=== PATIENT | female | born 1960 | race Caucasian/White ===

== ENCOUNTER 2022-12-18 16:13 | Emergency (ER) | payer OTHER, SELFPAY ==
--- NOTE | ~2022-12-18 | XR_ITS ---
EXAMINATION: XR chest 2V Exam Date/Time: 12/18/2022 17:13 CDT HISTORY: chest pain Comparison: None. RESULT: Lines, tubes, and devices: None. Lungs and pleura: No pneumothorax, effusion, or focal consolidation. Diffuse reticulonodular opaciti es. Cardiomediastinal silhouette: Calcified right hilar and mediastinal nodes. Other: No acute osseous or upper abdominal finding. IMPRESSION: Pulmonary opacities may represent bronchiolitis, as can be seen with atypical infection, asthma, aspi ration, and small airways disease. Reviewed, dictated and finalized at location K. IMPRESSION: Pulmonary opacities may represent bronchiolitis, as can be seen with atypical i nfection, asthma, aspiration, and small airways disease.
[2022-12-18 16:14] VITALS: BP 146/90; PULSE 110; RESP 16; TEMP 36.9; O2SAT 97
--- NOTE | 2022-12-18 16:41 | ECG_ITS ---
Measurements Intervals [employer] Rate: 107 P: 62 TN: 112 QRS: 65 QRSD: 96 T: 39 QT: 353 QTc: 473 Interpretive Statements SINUS TACHYCARDIA WITH SHORT TN INTERVAL NONSPECIFIC T-WAVE ABNORMALITY- INFERIOR LEADS BASELINE ARTIFACT- AVL ABNORMAL ECG NO PREVIOUS ECG AVAILABLE FOR COMPARISON Electronically Signed On 12-18-2022 20:57:31 CDT by Faisal Ji D.O.
[2022-12-18 17:14] LABS: Basophils Absolute Auto 0.1 K/mm3 (0.0-0.1); Basophils Percent Auto 1.2 % (0.2-1.2); Eosinophils Absolute Auto 0.2 K/mm3 (0-0.3); Eosinophils Percent Auto 2.3 % (0-4.4); Hematocrit 44.1 % (37.0-47.0); Hemoglobin 15.2 g/dL (12.0-15.0); Immature Granulocyte Absolute 0.03 K/mm3 (0.00-0.031); Immature Granulocyte Percent A 0.4 % (0-0.5); Lymphocytes Absolute Auto 3.22 K/mm3 (0.9-3.2); Lymphocytes Percent Auto 43.5 % (18.3-44.2); Mean Corpuscular HGB Conc 34.5 g/dl (32-36); Mean Corpuscular Hemoglobin 33.2 pg (26-34); Mean Corpuscular Volume 96.3 fl (80-100); Mean Platelet Volume 9.4 fl (7.4-10.4); Monocytes Absolute Auto 0.6 K/mm3 (0.1-0.6); Monocytes Percent Auto 8.5 % (2.6-8.5); Neutrophils Absolute Auto 3.3 K/mm3 (1.3-6.7); Neutrophils Percent Auto 44.1 % (45.5-73.1); Platelet Count Result 404 k/mm3 (150-375); Red Blood Count 4.58 M/mm3 (4.2-5.4); Red Cell Distribution Width 12.3 % (11.5-14.5); White Blood Count 7.4 K/mm3 (4.5-10.0)
--- NOTE | 2022-12-18 17:24 | PC.NURSE ---
SON SHAJI WAS CALLED AT [phone] AND WILL BE HERE ALLISON TO SIT WITH PT
[2022-12-18 17:29] LABS: INR 1.1; Prothrombin Time 14.2 Seconds (11.1-14.7)
[2022-12-18 17:30] LABS: Partial Thromboplastin Time 26.1 SECONDS (22.3-36.8)
--- NOTE | 2022-12-18 17:45 | ED.PSYCH ---
HPI - Psych General Chief Complaint: Psychiatric Symptoms <Domenica Mccullough MD - Last Filed: 12/19/22 23:17> Stated Complaint: SI <Domenica Mccullough MD - Last Filed: 12/19/22 23:17> Time Seen by Provider: 12/18/22 16:15 <Domenica Mccullough MD - Last Filed: 12/19/22 23:17> Source: patient and RN notes reviewed <Domenica Mccullough MD - Last Filed: 12/19/22 23:17> Mode of arrival: ambulatory <Domenica Mccullough MD - Last Filed: 12/19/22 23:17> History of Present Illness HPI Narrative: This is a 62 year old female with history of depression who presents for evaluation of depression. Patient states she moved here weeks ago from [place] to be closer to her son. She states her landlord might evict her. She states that she is unable to put her clothes away in a closet and she is living out of boxes. SHe has been asking her landlord for something and her landlord told her if she does not like living there she can leave. She has not been evicted. She states 4 days ago she was so upset that she was walking down the street . She reports having sob , chest pain and anxiety at that time. She denies exertional chest pain. Today she reports having suicidal thoughts. She has cuts to her left wrist. She states she took unknown medications 4 days ago in suicide attempt. She also reports sticking a gun in her mouth with thoughts of killing her self. She states she has not had issues with suicidal thoughts in the past. <Domenica Mccullough MD - Last Filed: 12/19/22 23:17> Related Data Home Medications: Home Medications Medication Instructions Recorded Confirmed alprazolam 0.5 mg tablet mg 12/18/22 celecoxib 200 mg capsule mg 12/18/22 fenofibrate micronized 200 mg mg 12/18/22 capsule <Domenica Mccullough MD - Last Filed: 12/19/22 23:17> Allergies/Adverse Reactions: Allergies Allergy/AdvReac Type Severity Reaction Status Date / Time No Known Allergies Allergy Verified 12/20/22 22:11 <Domenica Mccullough MD - Last Filed: 12/19/22 23:17> Review of Systems Constitutional: Constitutional: Denies weakness <Domenica Mccullough MD - Last Filed: 12/19/22 23:17> Cardiovascular: Cardiovascular: Reports chest pain, Denies syncope, Denies rapid heart rate, Denies irregular heart rhythm, Denies leg edema and Denies dyspnea <Domenica Mccullough MD - Last Filed: 12/19/22 23:17> Respiratory: Respiratory: Denies chest congestion, Denies hemoptysis, Denies excessive phlegm production and Denies dyspnea <Domenica Mccullough MD - Last Filed: 12/19/22 23:17> Gastrointestinal: Gastrointestinal: Denies abdominal pain, Denies hematochezia, Denies diarrhea and Denies vomiting <Domenica Mccullough MD - Last Filed: 12/19/22 23:17> Genitourinary: Genitourinary: Denies hematuria and Denies dysuria <Domenica Mccullough MD - Last Filed: 12/19/22 23:17> Musculoskeletal: Musculoskeletal: Denies joint swelling, Denies loss of height and Denies muscle weakness <Domenica Mccullough MD - Last Filed: 12/19/22 23:17> Neurologic: Denies syncope, Denies focal weakness and Denies weakness <Domenica Mccullough MD - Last Filed: 12/19/22 23:17> Psychiatric: Psychiatric: Reports anxiety, Reports depression and Reports suicidal ideation <Domenica Mccullough MD - Last Filed: 12/19/22 23:17> [facility] Past Medical History Medical History: Medical History (Updated 12/21/22 @ 00:00 by Shaylee Cheng) Depression Hypertension <Domenica Mccullough MD - Last Filed: 12/19/22 23:17> Surgical History Surgical History: Surgical History (Updated 12/18/22 @ 17:51 by Domenica Mccullough MD) H/O: hysterectomy <Domenica Mccullough MD - Last Filed: 12/19/22 23:17> Social History Social History: Social History Substance use type: does not use <Domenica Mccullough MD - Last Filed: 12/19/22 23:17> Exam Const: General: no acute distress and alert <Domenica Mccullough MD - Last Filed: 12/19/22 23:17> Nutritional Appe
[2022-12-18 17:59] LABS: Alanine Aminotransferase 66 U/L (6-35); Albumin Level 5.2 g/dL (3.5-5.1); Alkaline Phosphatase 91 U/L (38-126); Anion Gap 15 mmol/L (8-16); Aspartate Amino Transferase 67 U/L (14-36); Bilirubin,Total 0.5 mg/dL (0.2-1.3); Blood Urea Nitrogen 9 mg/dL (7-17); Calcium 9.4 mg/dL (8.4-10.2); Carbon Dioxide 25 mmol/L (22-30); Chloride 108 mmol/L (98-107); Estimated CRCL calculation 59 ml/min; Estimated Glomerular Filt Rate > 60; Glucose 121 mg/dL (65-110); Magnesium 2.1 mg/dL (1.6-2.3); Potassium 3.3 mmol/L (3.4-5.0); Sodium 148 mmol/L (137-145)
[2022-12-18 18:10] LABS: Troponin I < 0.012 ng/mL (0.000-0.034)
[2022-12-18 18:17] LABS: Acetaminophen < 10 ug/mL (10-30); Ethanol 161 mg/dL (<10); Salicylate < 1.0 mg/dL (2-20)
[2022-12-18] MEDS: POTASSIUM CHLORIDE 20 MEQ TABLET 40 MEQ PO (18:33)
[2022-12-18 19:05] LABS: SARS-CoV-2 RNA PCR Negative (Negative)
--- NOTE | 2022-12-18 19:28 | PC.NURSE ---
Report received from GLEN Gramajo. Assumed care of patient at this time.
--- NOTE | 2022-12-18 20:14 | PC.NURSE ---
Patient attempted to provide a urine specimen 5 times. Patient unsuccessful. Patient agreeable to straight cath.
[2022-12-18 21:00] LABS: Amphetamine Screen Urine Negative (Negative); Barbiturate Screen Urine Negative (Negative); Benzodiazepines Screen Urine Positive (Negative); Cannabinoid Screen Urine Positive (Negative); Cocaine Screen Urine Negative (Negative); Methadone Screen Urine Negative (Negative); Opiate Screen Urine Negative (Negative); Phencyclidine Screen Urine Negative (Negative)
[2022-12-18 21:09] LABS: Appearance Urine Clear (Clear); Bacteria Urine None Seen /hpf; Bilirubin Urine Negative (Negative); Blood Urine 1+ (Negative); Color Urine Yellow (Yellow); Glucose Urine UA Negative (Negative); Ketones Urine Negative (Negative); Leukocyte Esterase Ur Negative LEU/UL (Negative); Need Manual Microscopic Reviewed; Nitrate Urine Negative (Negative); Non Pathogenic Casts 0-2; Protein Urine Negative (Negative); RBC Urine 0-2 /hpf (0-2); Specific Grav Ur 1.014 (1.001-1.035); Squamous Epithelial Cell Urine None seen /hpf (Few); WBC Urine 0-5 /hpf; pH Urine 5.5 (5.0-9.0)
--- NOTE | 2022-12-18 21:38 | PC.NURSE ---
Patient requesting tylenol or asa and zofran for PARKS and nausea. ERP notified.
[2022-12-18 21:39] LABS: Add Urine Microscopic? YES
--- NOTE | 2022-12-18 21:47 | PC.NURSE ---
2144 Called Crisis and spoke with Yessenia, she states she will send someone out to evaluate patient.
[2022-12-18] MEDS: ONDANSETRON HCL ODT 4 MG TABLET PO (21:51)
[2022-12-18] MEDS: ACETAMINOPHEN 325 MG TABLET 650 MG PO (21:52)
--- NOTE | 2022-12-18 23:15 | PC.NURSE ---
Crisis in speaking with patient.
--- NOTE | 2022-12-19 00:08 | PC.NURSE ---
Maria Esther from [facility] in [place] calls to inform this nurse that they are full and have no beds available at this time.
[2022-12-19] MEDS: LORazepam (*CRX) 1 MG TABLET PO ×2 (00:26→12:19)
[2022-12-19 00:42] VITALS: BP 149/92; PULSE 87; RESP 20; TEMP 36.7; O2SAT 99
[2022-12-19 07:36] VITALS: BP 143/91; PULSE 80; RESP 18; O2SAT 97
[2022-12-19] MEDS: CELECOXIB 200 MG CAPSULE PO (08:22)
[2022-12-19] MEDS: FENOFIBRATE 160 MG TABLET PO (08:22)
[2022-12-19] MEDS: ALPRAZolam (*CRX) 0.5 MG TABLET PO ×2 (08:22→21:15)
--- NOTE | 2022-12-19 09:53 | PC.NURSE ---
Radha called and states that they are full at this time and states that we can call back tomorrow to see if they have any beds available
--- NOTE | 2022-12-19 11:05 | PC.NURSE ---
Report received from GLEN Bobby. Assumed care of patient at this time. Pt currently in room walking around. Sitter at bedside.
[2022-12-19 15:56] VITALS: BP 144/88; PULSE 84; RESP 18; TEMP 36.9; O2SAT 99
--- NOTE | 2022-12-19 19:58 | PC.NURSE ---
Crisis here to talk with patient, still attempting to find placement.
--- NOTE | 2022-12-20 02:18 | PC.NURSE ---
Pt was re-evaluated by crisis at change of shift. During reassessment, pt denied SI/HI ideation, however, per crisis, plan of action remains
--- NOTE | 2022-12-20 07:21 | PC.NURSE ---
assumed care of pt. pt resting on stretcher, A&Ox4, denies any complaints at this time
[2022-12-20 07:22] VITALS: BP 141/93; PULSE 77; RESP 16; O2SAT 97
--- NOTE | 2022-12-20 10:21 | PC.NURSE ---
called crisis for update on pt placement attempt. spoke with evelio [facility]. will call supervisor dials to send someone out for reassessment
--- NOTE | 2022-12-20 11:30 | PC.NURSE ---
Pt safety tray ordered at 11:30 for lunch
[2022-12-20 13:51] VITALS: BP 134/81; PULSE 78; RESP 16; O2SAT 97
--- NOTE | 2022-12-20 13:52 | PC.NURSE ---
spoke with evelio from [facility], pt has been accepted at [facility]. voluntary documentation and recent vital signs faxed to [facility]. fax #: [phone]
--- NOTE | 2022-12-20 15:28 | PC.NURSE ---
spoke with trevor from [facility]. report given, awaiting transport
[2022-12-20] MEDS: CELECOXIB 200 MG CAPSULE PO (17:27)
[2022-12-20] MEDS: FENOFIBRATE 160 MG TABLET PO (17:27)
[2022-12-20] MEDS: ALPRAZolam (*CRX) 0.5 MG TABLET PO (21:57)
[2022-12-20 22:40] VITALS: BP 165/90; PULSE 73; RESP 15; O2SAT 99
== END 2022-12-20 22:43 ==
PROVIDERS: General Practice; Emergency Provider Preventive Medicine Aerospace Medicine; PCP Internal Medicine
DX: F32.A Depression, unspecified (principal); Z20.822 Contact with and (suspected) exposure to COVID-19; I10 Essential (primary) hypertension; Z90.710 Acquired absence of both cervix and uterus; R00.0 Tachycardia, unspecified; R94.31 Abnormal electrocardiogram [ECG] [EKG]
CPT/HCPCS: 36415; 71046; 80053; 80307; 81001; 83735; 84443; 84484; 85025; 85610; 85730; 87635; 93005; 99285; A9270; U0005